=== PATIENT | female | born 1990 ===

== ENCOUNTER 2018-12-07 10:04 | Emergency (ER) | payer BC ==
[2018-12-07 10:23] VITALS: BP 143/90; PULSE 83; RESP 18; TEMP 98.5; O2SAT 100
--- NOTE | 2018-12-07 11:40 | C.PDOC ---
History Of Present Illness Pt c/o left ear pain. Pt is tanking Amoxicillin and Naproxen without improvement. Time Seen by Provider: 12/07/18 10:54 Chief Complaint (Nursing): ENT Problem History Per: Patient Onset/Duration Of Symptoms: Days (few) Current Symptoms Are (Timing): Still Present Quality (Ear): Pain W/Touch, Swelling, Discharge Symptoms Have Been: Continuous Severity: Moderate Past Medical History Reviewed: Historical Data, Nursing Documentation, Vital Signs Vital Signs: Last Vital Signs Temp 98.5 F 12/07/18 10:18 Pulse 83 12/07/18 10:18 Resp 18 12/07/18 10:18 BP 143/90 12/07/18 10:18 Pulse Ox 100 12/07/18 10:18 - Medical History PMH: No Chronic Diseases Family History: States: Unknown Family Hx - Social History Hx Alcohol Use: No Hx Substance Use: No - Immunization History Hx Tetanus Toxoid Vaccination: No Hx Influenza Vaccination: No Hx Pneumococcal Vaccination: No Review Of Systems Except As Marked, All Systems Reviewed And Found Negative. Constitutional: Negative for: Fever, Weakness Eyes: Negative for: Pain, Vision Change, Conjunctivae Inflammation ENT: Positive for: Ear Pain (left), Ear Discharge (left), Throat Pain. Negative for: Nose Congestion, Mouth Pain, Mouth Swelling, Throat Swelling Cardiovascular: Negative for: Chest Pain Respiratory: Negative for: Cough, Shortness of Breath Gastrointestinal: Negative for: Nausea, Vomiting, Abdominal Pain Musculoskeletal: Positive for: Neck Pain Skin: Negative for: Rash Neurological: Negative for: Weakness, Numbness, Seizures, Altered Mental Status Physical Exam - Physical Exam Appears: Non-toxic, No Acute Distress Skin: Normal Color, Warm, Dry, No Rash Head: Atraumatic, Normacephalic, Other (No mastoid tenderness.) Eye(s): bilateral: Normal Inspection, PERRL, EOMI Ear(s): Left: Other (Discharge and edema of canal. Pain on palpation of tragus.), Right: Normal Oral Mucosa: Moist, No Drooling, No Trismus Tongue: Normal Appearing Lips: Normal Appearing Teeth: No Tender To Palpation Gingiva: No Abscess Throat: Normal Neck: Normal ROM, Supple Extremity: Normal ROM, No Deformity Neurological/Psych: Oriented x3, Normal Speech, Normal Motor, Normal Sensation ED Course And Treatment O2 Sat by Pulse Oximetry: 100 Pulse Ox Interpretation: Normal Disposition Counseled Patient/Family Regarding: Diagnosis, Need For Followup, Rx Given - Disposition Disposition: HOME/ ROUTINE Disposition Time: 11:41 Condition: STABLE Additional Instructions: Follow up with your doctor. Return to the ER if you develop fever, worsening of symptoms or if you have any other concerns. Prescriptions: Ofloxacin Otic 0.3% [Floxin 0.3% Otic Soln] 10 drop OT BID #1 bottle Instructions: Outer Ear Infection (DC) - Clinical Impression Clinical Impression: Left otitis externa
== END 2018-12-07 11:46 | disposition home or self-care (01) ==
LOC: C.ER 10:04
DX: H60.92 Unspecified otitis externa, left ear (principal)